=== PATIENT | male | born 1990 | race Caucasian/White ===

== ENCOUNTER → 2022-03-14 | Outpatient (REF) | LOC: M PLAIMG 10:29 | PROVIDERS: ATTEND Internal Medicine | DX: M43.06 Spondylolysis, lumbar region (principal); M13.80 Other specified arthritis, unspecified site ==

== ENCOUNTER → 2023-08-22 | Outpatient (CLI) | payer OTHER | LOC: M PLAIMG 07:24 | PROVIDERS: ATTEND Physician Assistant Medical | DX: M54.50 Low back pain, unspecified (principal); M47.897 Other spondylosis, lumbosacral region; G89.28 Other chronic postprocedural pain ==